=== PATIENT | male | born 1970 | race American Indian/Alaskan Native ===

== ENCOUNTER 2018-09-03 09:54 | Outpatient (CLI) | payer OTHER ==
--- NOTE | 2018-09-03 13:22 | XRay Report ---
AP AND LATERAL LUMBOSACRAL SPINE: History: Back pain. The vertebral bodies are well mineralized and normal in alignment and vertebral height with well preserved interspace distances. The visualized portions of the posterior elements are normal. IMPRESSION: Normal study.
== END 2018-09-03 09:55 | disposition home or self-care (01) ==
LOC: XRAY 09:54
PROVIDERS: ATTEND Internal Medicine
DX: Z02.71 Encounter for disability determination (principal); S06.9X0A Unspecified intracranial injury without loss of consciousness, initial encounter; M54.9 Dorsalgia, unspecified; X58.XXXA Exposure to other specified factors, initial encounter; Y93.89 Activity, other specified; Y92.89 Other specified places as the place of occurrence of the external cause; Y99.8 Other external cause status
CPT/HCPCS: 72100